=== PATIENT | male | born 1990 | race Two or more races ===

== ENCOUNTER → 2017-10-26 | Emergency (ER) | payer OTHER ==
[~2017-10-26] VITALS: Ht 165.1 cm; Wt 59.0 kg
== END | disposition home or self-care (01) ==
LOC: ER 13:03
DX: S61.411A Laceration without foreign body of right hand, initial encounter (principal); W45.8XXA Other foreign body or object entering through skin, initial encounter; Y93.89 Activity, other specified; Y92.89 Other specified places as the place of occurrence of the external cause; Y99.8 Other external cause status